=== PATIENT | female | born 1965 | race Caucasian/White ===

== ENCOUNTER → 2016-10-14 | Outpatient (CLI) | payer OTHER ==
--- NOTE | 2016-10-14 21:40 | Diagnostic Imaging Report ---
INDICATION: Abnormal mammogram. TECHNIQUE: Multiple real time grayscale images were obtained of the left breast in various projections. FINDINGS: In the 1:00 o'clock position of the left breast, there is a small clustered cyst measuring 1.1 x 0.5 x 0.8 cm. This appears to likely correlate with the mammographic abnormality. No other discrete solid or cystic masses are appreciated. IMPRESSION: Slightly complex cluster of cysts in the left breast which likely corresponds with mammographic abnormality. Six-month followup is recommended to ensure stability as this is a baseline exam. Category 3 probably benign. ACR BI-RADS Category 3: Probably benign findings. Result letter will be mailed to the patient. Note: At least 10% of breast cancer is not imaged by mammography. Dictated by: Dictated on workstation # [id number]
--- NOTE | 2016-10-14 21:55 | Diagnostic Imaging Report ---
INDICATION: Breast lump. The current study was also evaluated with a Computer Aided Detection (CAD) system. COMPARISON: No prior examinations are available for comparison. FINDINGS: There is a moderate amount of residual fibroglandular tissue bilaterally. There are scattered benign type calcifications. There is a well-circumscribed nodular density in the 1:00 o'clock position of the left breast. There is no other dominant mass, spiculated lesion or suspicious calcification identified. Ultrasound was performed in this area which appears to correspond with a small cluster of cysts. These were mildly complex. IMPRESSION: Category 3, probably benign. The well-circumscribed density in the left mammogram appears to correspond with a clustered cyst on ultrasound. Six-month followup is recommended to ensure stability as well as ensure this lesion corresponds with the ultrasound findings. ACR BI-RADS Category 3: Probably benign findings. Result letter will be mailed to the patient. Note: At least 10% of breast cancer is not imaged by mammography. Dictated by: Dictated on workstation # [id number]
== END ==
LOC: RAD 13:17
PROVIDERS: ATTEND Nurse Practitioner Family
DX: N63 Unspecified lump in breast (principal)
CPT/HCPCS: 76642; 77066